=== PATIENT | female | born 1930 | race Caucasian/White ===

== ENCOUNTER → 2019-11-28 | Day surgery (SDC) | payer OTHER ==
[~2019-11-28] VITALS: Ht 154.9 cm; Wt 54.4 kg
[~2019-11-28] MED LIST: ALLO300T2 PO; DOCU-94 PO; DexAMETHasone SOD PHOS 10MG/1ML VIAL INJ ONE; GLYCOPYRROLATE 0.2 MG/ML 1ML VIAL ONE; HYDR-4833 PO; ISOS30TA4 PO; LIDOCAINE 2% (LOCAL ANESTH.) PF 5ml SDV ONE; LOSA-69 PO; MAGN400T40 PO; METO25TA5 PO; MIDAZOLAM HCL 1MG/1ML-2 ML VIAL ONE; ONDANSETRON HCL 4 MG/2 ML VIAL ONE; OXYB5TAB61 PO; PROPOFOL 10 MG/ML 20 ML IV ONE; ROPIVACAINE 0.5% (5MG/ML) 20ML AMPULE IJ ONE; SIMV-8 PO; ceFAZolin 1GM/50ML 50 ML IV ONE; ePHEDrine SULFATE 50 MG/ML AMP ONE; fentaNYL CITRATE 100 MCG/2 ML VL ONE
[2019-11-28 11:13] VITALS: BP 128/62
== END | disposition home or self-care (01) ==
LOC: SUR 07:34
PROVIDERS: ATTEND Orthopaedic Surgery
DX: S42.301A Unspecified fracture of shaft of humerus, right arm, initial encounter for closed fracture (principal); Z85.3 Personal history of malignant neoplasm of breast; Z96.651 Presence of right artificial knee joint; Z98.890 Other specified postprocedural states; Z53.8 Procedure and treatment not carried out for other reasons; Z11.59 Encounter for screening for other viral diseases; X58.XXXA Exposure to other specified factors, initial encounter; Y93.89 Activity, other specified; Y92.89 Other specified places as the place of occurrence of the external cause; Y99.8 Other external cause status
CPT/HCPCS: 87635; J0690; J1100; J2001; J2250; J2405; J2704; J2795; J3010

== ENCOUNTER 2019-12-01 13:07 | Inpatient (IN) | payer OTHER ==
[~2019-12-01] VITALS: Ht 154.9 cm; Wt 59.5 kg
[~2019-12-01 13:07] MED LIST changes: -DexAMETHasone SOD PHOS 10MG/1ML VIAL INJ ONE; -GLYCOPYRROLATE 0.2 MG/ML 1ML VIAL ONE; -LIDOCAINE 2% (LOCAL ANESTH.) PF 5ml SDV ONE; -MIDAZOLAM HCL 1MG/1ML-2 ML VIAL ONE; -ONDANSETRON HCL 4 MG/2 ML VIAL ONE; -PROPOFOL 10 MG/ML 20 ML IV ONE; -ROPIVACAINE 0.5% (5MG/ML) 20ML AMPULE IJ ONE; -ceFAZolin 1GM/50ML 50 ML IV ONE; -ePHEDrine SULFATE 50 MG/ML AMP ONE; -fentaNYL CITRATE 100 MCG/2 ML VL ONE
[2019-12-01] MEDS ORDERED: ceFAZolin 1GM/50ML 50 ML IV ONE (14:14)
[2019-12-01] MEDS ORDERED: ROPIVACAINE 0.5% (5MG/ML) 20ML AMPULE IJ ONE (14:31)
[2019-12-01] MEDS ORDERED: GLYCOPYRROLATE 0.2 MG/ML 1ML VIAL ONE (14:37)
[2019-12-01] MEDS ORDERED: ePHEDrine SULFATE 50 MG/ML AMP ONE (14:37)
[2019-12-01] MEDS ORDERED: ESMOLOL HCL 10 ML IV ONE (14:37)
[2019-12-01] MEDS ORDERED: PROPOFOL 10 MG/ML 20 ML IV ONE (14:37)
[2019-12-01] MEDS ORDERED: ONDANSETRON HCL 4 MG/2 ML VIAL ONE (14:37)
[2019-12-01] MEDS ORDERED: MIDAZOLAM HCL 1MG/1ML-2 ML VIAL ONE (14:37)
[2019-12-01] MEDS ORDERED: fentaNYL CITRATE 100 MCG/2 ML VL ONE (14:37)
[2019-12-01] MEDS ORDERED: KETAMINE HCL 10 ML ONE (15:49)
[2019-12-01] MEDS ORDERED: MORPHINE SULFATE 4 MG/ML SYR/VIAL IV PRN (16:15)
[2019-12-01] MEDS ORDERED: ONDANSETRON HCL 4 MG/2 ML VIAL IV PRN (16:15)
[2019-12-01] MEDS ORDERED: MEPERIDINE HCL (25 MG/ML) 1ML VIAL ONE (16:54)
[2019-12-01] MEDS ORDERED: MORPHINE SULF INJ 2 MG/ML SYRINGE 1ML IV PRN (17:45)
[2019-12-01] MEDS ORDERED: NITROGLYCERIN 0.4 MG SL TAB SL PRN (17:45)
[2019-12-01] MEDS ORDERED: HYDROcodone-ACET 5/325MG TAB PO PRN ×2 (17:45→18:30)
[2019-12-01] MEDS: HYDROmorphone HCL 2 MG/ML VL IV PRN ×2 (17:50→18:15)
--- NOTE | 2019-12-01 18:35 | NUR ---
MS admit from PACU KARTHIK LUNDBERG admitted to tele/MS after SBAR received. Patient oriented to Sudha Matt, RN primary RN, unit, room, bed, and unit policies regarding patient care. Patient weighed by bedscale and encouraged to call if they need something. All questions and concerns addressed, patient verbalized understanding. Noted charlie wrap applied to right arm and is supported in a sling. Patient is on 2L/min NC. Bed is set in lowest locked position with side rails up x 2 for safety and call light is within reach. Safety bed alarm is set on. Note: []
[2019-12-01 18:40] VITALS: BP 151/85
--- NOTE | 2019-12-01 19:19 | NUR ---
Care endorsed to NOC Norma ORTEGA.
--- NOTE | 2019-12-01 19:30 | NUR ---
Opening Shift Note Assumed care of patient, awake and alert. No S/S of distress/SOB or pain. Dressing on the right arm intact, sling in place. Bed alarm on at all times, patient's room next to the nurse's station, call light within reach. Instructed on POC and to call for assist PRN, will continue to monitor for changes Q1hr and PRN.
[2019-12-01 21:48] VITALS: BP 151/85
[2019-12-01 22:00] VITALS: BP 150/92
[2019-12-01] MEDS: OXYBUTYNIN CHL 5 MG TAB PO SCH (22:00)
[2019-12-01] MEDS: METOPROLOL TARTRATE 25 MG TAB PO SCH (22:00)
[2019-12-01] MEDS: LOSARTAN POTASSIUM 50 MG TAB PO SCH (22:00)
[2019-12-01] MEDS: DOCUSATE SOD 100 MG CAP PO SCH (22:00)
[2019-12-01] MEDS: ceFAZolin 1GM/50ML 50 ML IV SCH (22:04)
--- NOTE | 2019-12-01 23:50 | NUR ---
Patient complaining of pain. [place] given earlier offered some relief, however patient is now in pain again. No pain medication due at this time. Dr. Walker paged regarding patient's pain. Awaiting for call back.
--- NOTE | 2019-12-02 00:15 | NUR ---
No call back from . Hospitalist paged. Awaiting for call back. Patient repositioned for comfort. Care continued.
--- NOTE | 2019-12-02 01:13 | NUR ---
Still waiting for call back. Patient resting comfortably in bed, breathing even, no facial grimace for pain. Care continued.
[2019-12-02] MEDS ORDERED: MORPHINE SULF INJ 2 MG/ML SYRINGE 1ML IV PRN (04:00)
--- NOTE | 2019-12-02 04:00 | NUR ---
Patient's pain not well controlled by [facility]. Hospitalist repaged. Dr. Haq called back, updated with patient's status, order received and noted. Care continued.
[2019-12-02 05:00] VITALS: BP 116/68
[2019-12-02] MEDS: DOCUSATE SOD 100 MG CAP PO SCH ×2 (05:44→15:35)
[2019-12-02] MEDS: ceFAZolin 1GM/50ML 50 ML IV SCH ×2 (05:44→15:35)
--- NOTE | 2019-12-02 06:08 | NUR ---
Patient encouraged to void. Patient assisted to the bedside commode and patient voided freely. Patient assisted back to bed, comfortably positioned. All needs attended to. Care will be continued until shift end and report given to oncoming RN.
[2019-12-02] MEDS ORDERED: HYDROcodone-ACET 5/325MG TAB PO PRN (06:30)
[2019-12-02] MEDS ORDERED: HYDROcodone-ACET 10/325MG TAB PO PRN (06:30)
--- NOTE | 2019-12-02 06:32 | NUR ---
Patient verbalizing morphine is helping better with pain control. All needs attended to. Will give report to oncoming RN.
[2019-12-02 08:44] VITALS: BP 116/49
[2019-12-02] MEDS ORDERED: ALLOPURINOL 300 MG TAB PO SCH (10:00)
[2019-12-02] MEDS: LOSARTAN POTASSIUM 50 MG TAB PO SCH (10:48)
[2019-12-02] MEDS: METOPROLOL TARTRATE 25 MG TAB PO SCH (10:48)
[2019-12-02] MEDS: OXYBUTYNIN CHL 5 MG TAB PO SCH (10:48)
[2019-12-02 12:29] VITALS: BP 94/55
[2019-12-02 14:55] VITALS: BP 94/55
--- NOTE | 2019-12-02 16:15 | NUR ---
Discharge instructions given as ordered. Encourage to follow up with PMD as instructed. All questions and concerns addressed. Patient verbalized understanding. Medication reconciliation form completed and copy given to patient. IV removed with catheter intact, pressure dressing applied. Patient taken to vehicle via wheelchair with all personal belongings, accompanied by staff. No distress noted at time of departure.
== END 2019-12-02 16:15 | disposition home or self-care (01) | DRG 482 ==
LOC: SUR 13:07 → CENTRAL 13:08
PROVIDERS: ADMIT Orthopaedic Surgery; ATTEND Orthopaedic Surgery
PROC: 0HQBXZZ Repair Right Upper Arm Skin, External Approach (ICD-10-PCS; 2019-12-01)
PROC: 0LQ10ZZ Repair Right Shoulder Tendon, Open Approach (ICD-10-PCS; 2019-12-01)
PROC: 0QS836Z Reposition Right Femoral Shaft with Intramedullary Internal Fixation Device, Percutaneous Approach (ICD-10-PCS; principal; 2019-12-01 15:05)
DX: S42.301A Unspecified fracture of shaft of humerus, right arm, initial encounter for closed fracture (principal); X58.XXXA Exposure to other specified factors, initial encounter; Y93.89 Activity, other specified; Y92.89 Other specified places as the place of occurrence of the external cause; Y99.8 Other external cause status; S51.811A Laceration without foreign body of right forearm, initial encounter
CPT/HCPCS: 73060; 76001; 97163; G0378; J0690; J2250; J2405; J2704